=== PATIENT | male | born 1945 | race American Indian/Alaskan Native ===

== ENCOUNTER 2016-09-23 12:29 | Day surgery (SDC) | payer MEDICARE ==
[~2016-09-23 12:29] MED LIST: FLAGYL 500 MG/100 ML 500 MG/100 ML BAG IV NR
--- NOTE | 2016-09-23 13:28 | Anesthesia Consultation ---
Anesthesia Consult and Med Hx Date of service: 09/23/16 - Airway Anesthetic Teeth Evaluation: Poor (multiple missing teeth, dental caries) ROM Head & Neck: Adequate Mental/Hyoid Distance: Adequate Mallampati Class: Class III Intubation Access Assessment: Probably Good - Pulmonary Exam CTA: Yes - Cardiac Exam Cardiac Exam: RRR - Pre-Operative Health Status ASA Pre-Surgery Classification: ASA3 Proposed Anesthetic Plan: General - Pre-Anesthesia Comment Pre-Anesthesia Comments: ECG: LAFB. MPI study: Normal perfusion scan EF 60%. moderate Pulmonary HTN. Plavix d/c 09/17/16. 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
[2016-09-23] MEDS ORDERED: AMIDATE IV ONE (13:42)
[2016-09-23] MEDS ORDERED: XYLOCAINE MPF 2% ONE (13:42)
[2016-09-23] MEDS ORDERED: D50W (25GM) IV ONE ×2 (13:42→13:57)
[2016-09-23] MEDS ORDERED: SUBLIMAZE ONE (13:42)
--- NOTE | 2016-09-23 13:42 | Anesthesia Day of Surgery ---
Anesthesia Day of Surgery - Day of Surgery Patient Examined: Yes Patient H&P Reviewed: Yes Patient is NPO: Yes Beta Blockers: Yes Cardiac Clearance: Yes
[2016-09-23] MEDS ORDERED: MORPHINE IV PRN (13:44)
[2016-09-23] MEDS ORDERED: ZOFRAN IV PRN (13:44)
[2016-09-23] MEDS ORDERED: NACL 0.9% 1000 ML 1,000 ML IV SCH (14:00)
[2016-09-23] MEDS ORDERED: PEPCID IV NR (14:00)
[2016-09-23] MEDS ORDERED: DIPRIVAN 10 MG/ML IV ONE (14:01)
[2016-09-23] MEDS ORDERED: D50W (25GM) IV NR (14:14)
[2016-09-23] MEDS ORDERED: ROBINUL ONE (15:00)
[2016-09-23] MEDS ORDERED: WATER FOR IRRIG STERILE IR ONE (16:00)
--- NOTE | 2016-09-23 16:17 | Short Stay Summary ---
Short Stay Documentation Date of service: 09/23/16 - History H&P: obtained from office - Allergies and Medications Current Medications: Allergies No Known Allergies Allergy (Unverified 06/23/16 13:50) Home Medications Medication Instructions Recorded Confirmed Last Taken Type Docusate Sodium [Colace] 100 mg PO BID PRN #20 capsule 06/23/16 09/21/16 Rx Ibuprofen [Motrin] 600 mg PO Q8H PRN #30 tablet 06/23/16 09/23/16 1 Week Ago Rx Nitrofurantoin Davison/M-Cryst 100 mg PO Q12HR #10 capsule 06/23/16 09/21/16 Rx [Macrobid CAP] traMADol [Ultram 50 MG tab] 50 mg PO Q6HR PRN #20 tablet 06/23/16 09/21/1609/22 Rx AtorvaSTATin [Lipitor] 40 mg PO DAILY 09/21/16 09/21/16 09/22/16 History Azithromycin [Zithromax Z-ERASMO] 500 dose PO TID 09/21/16 09/21/16 09/22/16 History Budesoni/Formotero 160-4.5(Nf) 2 puff IH BID 09/21/16 09/23/16 09/23/16 08:30 History [Symbicort 160-4.5 (Nf)] Clopidogrel Bisulfate [Plavix] 75 mg PO DAILY 09/21/16 09/22/16 09/17/16 History Hydralazine HCl [Apresoline TAB] 50 mg PO BID 09/21/16 09/21/16 09/23/16 08:30 History Insulin Detemir [Levemir] 09/21/16 09/22/16 History Metoprolol [Lopressor] 25 mg PO BID 09/21/16 09/21/16 09/23/16 08:30 History Sertraline [Zoloft] 100 mg PO QDAY 09/21/16 09/21/16 09/22/16 History Tamsulosin [Flomax] 0.4 mg PO QDAY 09/21/16 09/21/16 09/22/16 History amLODIPine [Norvasc] 10 mg PO DAILY 09/21/16 09/21/16 09/23/16 08:30 History Active Medications Dextrose (D50w (25gm)) 6.25 ml IV ONCE NR Stop: 09/23/16 23:59 Last Admin: 09/23/16 14:18 Dose: 6.25 ml Famotidine (Pepcid) 20 mg IV PREOP NR Stop: 09/23/16 23:59 Last Admin: 09/23/16 14:24 Dose: 20 mg Metronidazole (Flagyl 500 Mg/100 Ml) 500 mg in 100 mls @ 100 mls/hr IV PREOP NR PRN Reason: Protocol Stop: 09/23/16 23:59 Sodium Chloride (Nacl 0.9% 1000 Ml) 1,000 mls @ 42 mls/hr IV DIRECT ROSA M Last Admin: 09/23/16 14:04 Dose: 42 mls/hr Morphine Sulfate (Morphine) 2 mg IV Q10MIN PRN PRN Reason: Pain, Moderate (4-6) Stop: 09/26/16 20:00 Ondansetron HCl (Zofran) 4 mg IV ONCE PRN PRN Reason: Nausea And Vomiting Stop: 09/23/16 20:00 - Brief post op/procedure progress note Date of procedure: 09/23/16 Pre-op diagnosis: elevated psa 207, prostate cancer Post-op diagnosis: other (urethral stricture) Procedure: cysto, DVIU, RPG, pus 15cc, bx Anesthesia: GETA Surgeon: NETO GODFREY Estimated blood loss: minimal Pathology: list (prostate cores) Specimen disposition: to lab Condition: stable - Hospital course Hospital course: cipro & cindyco on chart - Disposition Condition at discharge: Stable Disposition: DISCHARGED TO HOME OR SELFCARE Short Stay Discharge Plan Follow up with: ANNITA CHEEK MD [Primary Care Provider] - 7 Days
--- NOTE | 2016-09-23 17:49 | Cat Scan Report ---
FINAL REPORT EXAM: CT ABDOMEN PELVIS WO CON HISTORY: elevated psa, prostate cancer TECHNIQUE: CT abdomen and pelvis without contrast PRIORS: Comparison is dated June 23, 2016 FINDINGS: There is posterior atelectasis and possible left lower lobe infiltrate visualized portion of the lower lobes Low-density focus within the inferior right lobe of the liver measuring 0.83 centimeters is noted incompletely characterized however unchanged from prior study.. Additionally there is a low-density focus at the lateral dome of the liver 1.3 centimeters which appears stable prior exam. Spleen is normal size and attenuation no peripancreatic inflammatory changes are observed. Right kidney is atrophic there is residual contrast material within the right renal collecting system which is nondilated and also within the urinary bladder presumably delayed excretion from prior contrast study Left kidney demonstrates no evidence for hydronephrosis or nephrolithiasis No evidence for colonic or small bowel distention. Abdominal aorta is normal in caliber There is thickening of the bladder wall Multiple brachytherapy seeds are present within the prostate. Right perirectal mass measuring 2.4 x 3.6 centimeters again noted unchanged. There is thickening of the rectal wall. There is a sclerotic focus within the left ilium unchanged prior exam. Sclerotic focus within the L4 vertebral body does appear larger than on the prior study. Schmorl's nodes are present within the endplates new since the prior exam There is superior endplate depression of T11 new since the prior study and suspicious for compression fracture. This could be traumatic or pathologic. IMPRESSION: Right perirectal mass unchanged with thickening of the rectal wall. Could be neoplastic or inflammatory Multiple brachytherapy seeds noted in the prostate Sclerotic skeletal foci as noted above. This does appear larger at L4 involving majority of the vertebral body and extending into the pedicle along Schmorl's nodes which are new since the previous study suspicious for metastasis Compression fracture T11 which may be acute or subacute could be either pathologic or traumatic. Small low-density foci within the right lobe of the liver incompletely characterized however stable since the prior study Atrophic right kidney with residual contrast material likely reflecting delayed excretion from prior contrast exam Contrast within the urinary bladder with diffuse thickening of the bladder wall Lower lobe areas of atelectasis or infiltrate left lower lobe infiltrate appears improved from prior exam.
[2016-09-23 18:31] VITALS: BP 152/78
--- NOTE | 2016-09-23 22:06 | Operative Report ---
PREOPERATIVE DIAGNOSES: Prostate cancer, elevated PSA of 200. POSTOPERATIVE DIAGNOSES: Prostate cancer, elevated PSA of 200, urethral stricture. SECONDARY DIAGNOSES: Dementia, diabetes, hypertension. PROCEDURE: Cystoscopy, direct vision internal urethrotomy, bilateral retrograde pyelograms, transrectal ultrasound and biopsy of the prostate (20 mL gland). SURGEON: Shashank Valdez MD ANESTHESIA: General. ANESTHESIOLOGIST: Vijaya Molina MD INDICATIONS: This patient is a 71-year-old gentleman presented to the office with an elevated PSA of 207 in 05/2016. His primary care physician is Dr. Mathew. He has some dementia and he is in a wheelchair, a escort was present. His power of civil attorney is daughter, gave consent. Also, he has a history of prostate cancer, status post seed therapy, unclear of the specifics. DESCRIPTION OF PROCEDURE: The patient was taken to the operative suite, placed in a supine position. After adequate general anesthesia, placed in a dorsal lithotomy position, prepped and draped in a sterile fashion. Ureteroscopy was performed. The patient had multiple strictures in the shaft. A 0.035 Glidewire was placed under fluoroscopic guidance using a cold knife, gentle cut at the 12 o'clock position allowed me to enter the prostate and bladder. He had minimally obstruction of the prostate itself. His bladder, no tumors or stones were noted. Bilateral retrograde pyelograms were obtained with an 8 Estonian Laney catheter and 8 mL of contrast. No filling defects or obstruction. He did have some asymmetry of the kidneys, appears to be a normal variant. A 16-Estonian Esp[place] catheter was left in with fluid in the bladder to facilitate the prostate ultrasound. Using a transrectal ultrasound, measurements were taken, a total of 20 mL gland. You could see the prosthetic seeds on both fluoroscopy and ultrasound, 12 core biopsy was taken, no lesions could be appreciated. It was sent for routine pathologic evaluation. Prostate appeared firm. His bladder was drained. España catheter was removed. He was extubated and taken to the recovery room. We will get a staging CT of abdomen and pelvis. He will go home on [employer] and [employer]. JOB# [id number] [facility]
--- NOTE | 2016-09-24 08:25 | Ultrasound Report ---
ULTRASOUND GUIDED INTRAOPERATIVE History: Prostate biopsy. Findings: Transrectal ultrasound was provided by radiology during prostate biopsy by Dr. Valdez. The prostate volume measures 8.2 cc. No obvious mass on ultrasound. Please correlate with the procedural report. Impression: Successful prostate biopsy under ultrasound guidance.
--- NOTE | 2016-09-24 10:02 | Fluoroscopy Report ---
RETROGRADE PYELOGRAM: HISTORY: Urethral stricture. FINDINGS: There is mild dilatation of the collecting system on the right. There is a duplicated collecting system on the left. The ureters are normal in caliber with no filling defects or strictures identified. Radiation seeds are noted in the prostate.
== END 2016-09-23 18:55 | disposition home or self-care (01) ==
LOC: OR 12:29
PROVIDERS: ATTEND Urology
DX: C61 Malignant neoplasm of prostate (principal); N35.9 Urethral stricture, unspecified; F03.90 Unspecified dementia, unspecified severity, without behavioral disturbance, psychotic disturbance, mood disturbance, and anxiety; E11.9 Type 2 diabetes mellitus without complications; I10 Essential (primary) hypertension; I27.2 Other secondary pulmonary hypertension; J44.9 Chronic obstructive pulmonary disease, unspecified; D64.9 Anemia, unspecified; F41.9 Anxiety disorder, unspecified; Z87.891 Personal history of nicotine dependence; Z86.73 Personal history of transient ischemic attack (TIA), and cerebral infarction without residual deficits; Z79.01 Long term (current) use of anticoagulants
CPT/HCPCS: 52276; 55700; 74176; 74420; 76998; 82962; 88305; A4217; C1758; J2405; J2704; J3010; J7030; Q9967

== ENCOUNTER 2018-01-05 12:46 | Day surgery (SDC) | payer MEDICARE ==
[~2018-01-05 12:46] MED LIST changes: +ANCEF/STERILE WATER 2 GM/20 ML IV NR; -FLAGYL 500 MG/100 ML 500 MG/100 ML BAG IV NR; +XYLOCAINE MPF 2% ONE
[2018-01-05] MEDS ORDERED: XYLOCAINE MPF 2% ONE (14:30)
[2018-01-05] MEDS ORDERED: D50W (25GM) Syringe IV ONE (14:34)
[2018-01-05 14:56] LABS: Basophils % (Auto) 0.2 % (0.0-1.8); Eosinophils # (Auto) 0.1 K/mm3 (0.0-0.4); Eosinophils % (Auto) 1.5 % (0.0-4.3); Hematocrit 40.4 % (35.5-45.6); Hemoglobin 13.3 gm/dl (11.8-15.2); Lymphocytes # (Auto) 2.6 K/mm3 (1.2-5.4); Lymphocytes % (Auto) 29.5 % (13.4-35.0); Mean Corpuscular HGB Conc 33 % (32-34); Mean Corpuscular Hemoglobin 29 pg (28-32); Mean Corpuscular Volume 88 fl (84-94); Monocytes # (Auto) 0.8 K/mm3 (0.0-0.8); Monocytes % (Auto) 9.1 % (0.0-7.3); Platelet Count 216 K/mm3 (140-440); Red Blood Count 4.59 M/mm3 (3.65-5.03); Red Cell Distribution Width 15.4 % (13.2-15.2)
[2018-01-05] MEDS ORDERED: NACL 0.9% 1000 ML 1,000 ML IV SCH (15:00)
[2018-01-05] MEDS ORDERED: DIPRIVAN 10 MG/ML IV ONE ×2 (15:03→16:11)
[2018-01-05] MEDS ORDERED: SUBLIMAZE ONE (15:03)
[2018-01-05] MEDS ORDERED: XYLOCAINE 2% UROJET ONE (15:29)
[2018-01-05 15:39] LABS: BUN/Creatinine Ratio TNR; Blood Urea Nitrogen TNR mg/dL (9-20); Calcium TNR mg/dL (8.4-10.2); Hemolysis Index TNR
[2018-01-05] MEDS ORDERED: VERSED ONE (15:47)
[2018-01-05] MEDS ORDERED: KETALAR ONE (15:53)
[2018-01-05] MEDS ORDERED: WATER FOR IRRIG STERILE IR ONE (16:00)
[2018-01-05] MEDS ORDERED: XYLOCAINE 2% UROJET UR ONE (16:00)
--- NOTE | 2018-01-05 16:23 | Short Stay Summary ---
Short Stay Documentation Date of service: 01/05/18 - History H&P: obtained from office - Allergies and Medications Current Medications: Allergies No Known Allergies Allergy (Unverified 06/23/16 13:50) Home Medications Medication Instructions Recorded Confirmed Last Taken Type Docusate Sodium [Colace] 100 mg PO BID PRN #20 capsule 06/23/16 12/30/17 Rx Ibuprofen [Motrin] 600 mg PO Q8H PRN #30 tablet 06/23/16 12/30/17 1 Week Ago Rx ~09/16/16 Nitrofurantoin Dyer/M-Cryst 100 mg PO Q12HR #10 capsule 06/23/16 12/30/17 Rx [Macrobid CAP] traMADol [Ultram 50 MG tab] 50 mg PO Q6HR PRN #20 tablet 06/23/16 12/30/1709/22 Rx AtorvaSTATin [Lipitor] 40 mg PO DAILY 09/21/16 12/30/17 09/22/16 History Budesoni/Formotero 160-4.5(Nf) 2 puff IH BID 09/21/16 12/30/17 09/23/16 08:30 History [Symbicort 160-4.5 (Nf)] Detemir (Nf) [Levemir] 15 unit SUB-Q QHS 09/21/16 01/03/18 09/22/16 History Hydralazine HCl [Apresoline TAB] 50 mg PO BID 09/21/16 12/30/17 09/23/16 08:30 History Metoprolol [Lopressor] 25 mg PO BID 09/21/16 12/30/17 09/23/16 08:30 History Sertraline [Zoloft] 100 mg PO QDAY 09/21/16 12/30/17 09/22/16 History Tamsulosin [Flomax] 0.4 mg PO QDAY 09/21/16 12/30/17 09/22/16 History amLODIPine [Norvasc] 10 mg PO DAILY 09/21/16 12/30/17 09/23/16 08:30 History Active Medications Cefazolin Sodium (Ancef/Sterile Water 2 Gm/20 Ml) 2 gm IV PREOP NR Stop: 01/05/18 23:59 Sodium Chloride (Nacl 0.9% 1000 Ml) 1,000 mls @ 75 mls/hr IV DIRECT ROSA M Last Admin: 01/05/18 14:41 Dose: 75 mls/hr - Brief post op/procedure progress note Date of procedure: 01/05/18 Pre-op diagnosis: urethral stricture Post-op diagnosis: same Procedure: cysot urethral dilation Anesthesia: GETA Surgeon: NETO GODFREY Estimated blood loss: none Condition: stable - Hospital course Hospital course: gretchenro & alice on chart - Disposition Condition at discharge: Stable Disposition: DC-01 TO HOME OR SELFCARE Short Stay Discharge Plan Follow up with: ANNITA CHEEK MD [Primary Care Provider] - 7 Days
[2018-01-05] MEDS ORDERED: ROMAZICON IV ONE (16:37)
[2018-01-05] MEDS ORDERED: TORADOL IV PRN (17:25)
--- NOTE | 2018-01-05 17:25 | Post Anesthesia Evaluation ---
- Post Anesthesia Evaluation Patient Participated: Yes Airway Patent: Yes Stable Respiratory Function: Yes Nausea/Vomiting: No Temp > 96.8F: Yes Pain Manageable: Yes Adequeate Hydration: Yes Anesthesia Complications: No Block Receding Appropriately: Not Applicable Patient on Ventilator: No
[2018-01-05 18:48] VITALS: BP 140/74
--- NOTE | 2018-01-05 19:52 | Operative Report ---
PREOPERATIVE DIAGNOSES: Urethral stricture, history of prostate cancer status post brachytherapy. POSTOPERATIVE DIAGNOSES: Urethral stricture, history of prostate cancer status post brachytherapy. PROCEDURE: Cystoscopy, urethral dilatation, urethrogram, cystogram. SURGEON: Shashank Valdez MD ANESTHESIA: IV sedation and local. ESTIMATED BLOOD LOSS: Minimal. FLUIDS: Crystalloid. INDICATIONS: This patient is a 72-year-old gentleman with a history of prostate cancer, cerebrovascular accident, on Plavix therapy, and stricture. Attempts at urodynamic testing was unsuccessful due to his stricture and therefore he presents now for endoscopic evaluation. Risks, benefits, and complications were explained. DESCRIPTION OF PROCEDURE: The patient was taken to the operative suite, placed in a supine position. After adequate IV sedation, viscous lidocaine was placed in the urethra. Cystoscopy was performed. Obvious bulbar stricture was noted. I was able to pass a 0.035 Glidewire followed by a #22-Slovenian cystoscope. Prostate had mild to moderate trilobar obstruction. His bladder, no tumors or stones were noted. A #18-Slovenian twenty-nine palms tip catheter was advanced, cystogram was performed confirmed an adequate position. The urethrogram confirmed a bulbar stricture. Rectal exam was benign. The patient tolerated the procedure, was extubated and taken to recovery room in stable condition. He will go home on [facility] and [place]. JOB# [id number] [facility]
== END 2018-01-05 18:40 | disposition home or self-care (01) ==
LOC: OR 12:46
PROVIDERS: ATTEND Urology
DX: N35.9 Urethral stricture, unspecified (principal); Z79.899 Other long term (current) drug therapy; Z92.3 Personal history of irradiation; Z85.46 Personal history of malignant neoplasm of prostate
CPT/HCPCS: 36415; 52281; 74450; 80048; 82962; 84153; 85025; A4217; C1769; J0690; J2250; J2704; J3010; J7030; Q9967

== ENCOUNTER 2018-01-31 18:39 | Emergency (ER) | payer MEDICARE ==
[2018-01-31] MEDS ORDERED: TYLENOL PO ONE (20:52)
--- NOTE | 2018-01-31 21:40 | Emergency Department Report ---
HPI - General Chief Complaint: Urogenital-Male Time Seen by Provider: 01/31/18 20:30 - HPI HPI: The patient is a 72-year-old male who presents for evaluation of penile pain. The patient reports pain to the penile head after accidentally pulling his Sharp out earlier today. He complains of constant mild stinging quality pain, improving, exacerbated with movement of the Sharp catheter. He also states that some sanguinous drainage occur after the incident. The patient denies fever , chills, night sweats, diarrhea, blood in the stool, dark tarry stool, abdominal pain, flank pain, genital discharge, inability to pass flatus. ED Past Medical Hx - Past Medical History Previous Medical History?: Yes Hx Hypertension: Yes Hx CVA: Yes (left sided weakness) Hx Diabetes: Yes Hx GERD: Yes Hx Arthritis: Yes Hx COPD: Yes Hx HIV: No - Social History Smoking Status: Former Smoker Substance Use Type: Alcohol - Medications Home Medications: Home Medications Medication Instructions Recorded Confirmed Last Taken Type Ibuprofen [Motrin] 600 mg PO Q8H PRN #30 tablet 06/23/16 12/30/17 1 Week Ago Rx ~09/16/16 traMADol [Ultram 50 MG tab] 50 mg PO Q6HR PRN #20 tablet 06/23/16 12/30/1709/22 Rx AtorvaSTATin [Lipitor] 40 mg PO DAILY 09/21/16 01/05/18 01/04/18 History Budesoni/Formotero 160-4.5(Nf) 2 puff IH BID 09/21/16 01/05/18 01/05/18 08:30 History [Symbicort 160-4.5 (Nf)] Detemir (Nf) [Levemir] 15 unit SUB-Q QHS 09/21/16 01/05/18 01/04/18 20:00 History Hydralazine HCl [Apresoline TAB] 50 mg PO BID 09/21/16 01/05/18 01/04/18 History Metoprolol [Lopressor] 25 mg PO BID 09/21/16 01/05/18 01/04/18 History amLODIPine [Norvasc] 10 mg PO DAILY 09/21/16 01/05/18 01/04/18 History Clopidogrel Bisulfate [Clopidogrel] 75 mg PO QDAY 0501/05/18 01/04/18 History QUEtiapine [SEROquel] 25 mg PO QDAY 01/05/18 01/05/18 01/04/18 History Triamterene/Hydrochlorothiazid 1 tab PO QDAY 01/05/18 01/05/18 01/04/18 History [Triamterene-Hctz 37.5-25 mg Tb] Acetaminophen [Tylenol] 500 mg PO Q6HR #20 tablet 02/01/18 Unknown Rx Cephalexin [Keflex] 500 mg PO Q6HR #30 capsule 02/01/18 Unknown Rx ED Review of Systems ROS: Stated complaint: DISCHARGE AFTER REMOVING SHARP Other details as noted in HPI Constitutional: denies: fever ENT: denies: throat or neck pain Respiratory: denies: cough, shortness of breath Cardiovascular: denies: chest pain Endocrine: denies unexplained weight loss or gain Gastrointestinal: denies: abdominal pain, nausea Genitourinary: reports penile pain denies: dysuria Musculoskeletal: denies: leg swelling Skin: denies: rash Neurological: denies: headache Hematological/Lymphatic: denies: easy bleeding or easy bruising Psych: denies sadness or hopelessness Physical Exam - Physical Exam Vital Signs: Vital Signs 01/31/18 01/31/18 19:00 20:08 Temperature 98.2 F 98.3 F Pulse Rate 61 62 Respiratory 16 16 Rate Blood Pressure 138/77 Blood Pressure 153/79 [Left] O2 Sat by Pulse 100 95 Oximetry Physical Exam: General: well-nourished, well-developed, no acute distress Head: Normocephalic, atraumatic Eyes: normal sclera ENT: Mucous membranes are pink and moist Neck: trachea midline, neck supple, No neck stiffness, no cervical adenopathy Respiratory: Breath sounds equal bilaterally, no wheezing, rales, or rhonchi Cardio: S1 and S2 present, no murmurs, rubs, gallops, capillary refill is brisk Abdomen: Normoactive bowel sounds, soft abdomen, no tenderness : Sharp catheter patient's urethral meatus, no surrounding discharge, drainage , or bleeding, foreskin easy retractable, no redness, swelling, fluctuance, crepitus to the penile head or scrotum Chest WALL/Back: No tenderness to palpation of the chest wall, no CVA tenderness with percussion Musc: No pitting edema Skin: No rash Neuro: no facial drooping, normal speech Psych: Normal affect ED Course Vital Signs 01/31/18 01/31/18 19:00 20:08 Temperature 98.2 F 98.3 F Pulse Rate 61 62 Respiratory 16 16 Rate Blood Pressure 138/77 Blood Pressure 153/79 [Left] O2 Sat by Pulse 100 95 Oximetry ED Medical Decision Making - Medical Decision Making The patient was seen and examined by myself. The patient is placed on a wire weaver cloth and continuous pulse ox. On initial evaluation, the patient was found to be in no distress. Evaluation orders are placed. Lab results revealed elevated urinalysis WBC and positive leukocyte esterase, consistent with UTI, and otherwise labs were unrevealing. The patient is given a tablet of Keflex treatment of his UTI. The patient was reevaluated and reported that their symptoms were markedly improved. The patient's Sharp catheter is functioning appropriately, and there are no signs of active hemorrhage due to trauma to the penis. The patient is stable for discharge with outpatient follow-up. The patient is given follow-up and return instructions. The patient expressed understanding and agreed with the plan. The patient is discharged in stable condition. Critical care attestation.: If time is entered above; I have spent that time in minutes in the direct care of this critically ill patient, excluding procedure time. ED Disposition Clinical Impression: Acute UTI (urinary tract infection), Penile pain Disposition: OP ADMIT IP TO THIS HOSP Is pt being admited?: No Does the pt Need Aspirin: No Condition: Stable Instructions: Sharp Catheter Placement and Care (ED), Urinary Leg Bag (GEN) Prescriptions: Acetaminophen [Tylenol] 500 mg PO Q6HR #20 tablet Cephalexin [Keflex] 500 mg PO Q6HR #30 capsule Referrals: NETO GODFREY MD [Staff Physician] - 3-5 Days [facility] [Outside] - 3-5 Days Time of Disposition: 21:40
[2018-01-31 23:52] LABS: Bacteria,Urine 3+ /HPF (Negative); Bilirubin,Urine NEG (Negative); Blood,Urine MOD (Negative); Color,Urine Yellow (Yellow); Hyaline Casts,Urine 1 /LPF; Mucus,Urine FEW /HPF; Urobilinogen,Urine < 2.0 mg/dL (<2.0)
[2018-02-01] MEDS ORDERED: KEFLEX PO ONE (00:40)
[2018-02-01 05:07] VITALS: BP 150/75
== END 2018-02-01 07:20 | disposition admitted as inpatient to this hospital (09) ==
LOC: ED 18:39
DX: N39.0 Urinary tract infection, site not specified (principal); I10 Essential (primary) hypertension; K21.9 Gastro-esophageal reflux disease without esophagitis; J44.9 Chronic obstructive pulmonary disease, unspecified
CPT/HCPCS: 81001